=== PATIENT | female | born 1955 | race Caucasian/White ===

== ENCOUNTER 2023-05-22 14:49 | Outpatient (REF) | payer OTHER, SELFPAY | END 2023-05-22 14:50 | disposition home or self-care (01) | LOC: HO.CHCLNP 14:49 | PROVIDERS: Visit Provider Family Medicine | DX: Z11.52 Encounter for screening for COVID-19 (principal); Z20.822 Contact with and (suspected) exposure to COVID-19 | CPT/HCPCS: 0241U ==

== ENCOUNTER 2023-10-21 08:58 | Outpatient (REF) | payer OTHER, SELFPAY ==
[2023-10-21 14:32] LABS: MANUAL DIFF FLAG NO
[2023-10-21 14:44] LABS: Basophils Absolute Auto 0.1 X10*3/uL (0.0-0.2); Eosinophils Absolute Auto 0.4 X10*3/uL (0.0-0.4); Eosinophils Percent Auto 3.1 % (0-4); Hemoglobin 8.4 g/dl (12.0-16.0); Imm Gran Abs Auto 0.04 X10*3/uL (0.00-0.03); Imm Gran Pct Auto 0.3 % (0.0-0.4); Lymphocytes Absolute Auto 4.4 X10*3/uL (1.2-4.9); Lymphocytes Percent Auto 35.6 % (20-40); Mean Corpuscular Hemoglobin 23.5 pg (27.0-33.0); Mean Corpuscular Volume 78.4 fL (80.0-98.0); Mean Platelet Volume 9.1 fL (9.4-12.3); Monocytes Percent Auto 8.3 % (2-11); Neutrophils Absolute Auto 6.3 x10*3/uL (2.0-8.3); Neutrophils Percent Auto 51.7 % (45-73); Platelet Count 436 X10*3/uL (160-400); Red Blood Count 3.57 X10*6/uL (4.20-5.50); Red Cell Distribution Width 16.5 % (11.0-16.0); White Blood Count 12.2 X10*3/uL (4.8-10.8)
[2023-10-21 15:51] LABS: Alanine Aminotransferase 20 U/L (0-31); Albumin Level 3.9 g/dL (3.5-5.0); Alkaline Phosphatase 95 U/L (39-117); Anion Gap 13 (12-20); Aspartate Amino Transferase 24 U/L (5-31); Bilirubin Total 0.2 mg/dL (0.0-1.0); Blood Urea Nitrogen 16 mg/dL (9-16); Calcium 8.7 mg/dL (8.4-10.2); Carbon Dioxide 24 mmol/L (22-29); Chloride 105 mmol/L (96-108); Cholesterol 168 mg/dL (<200); Estimated Glomerular Filt Rate > 60; Glucose Fasting 66 mg/dL (60-99); HDL Cholesterol 36 mg/dL (>40); LDL Cholesterol Calculated 116 mg/dL (<100); Potassium 3.8 mmol/L (3.3-5.1); Sodium 138 mmol/L (135-145); Total Protein 8.2 g/dL (6.5-8.0); Triglycerides 82 mg/dL (<150)
[2023-10-21 15:55] LABS: TSH reflex Free T4 2.29 uIU/mL (0.32-4.0)
[2023-10-22 08:51] LABS: HIV AB/AG Nonreactive (Nonreactive); HIV Num 1 0.04 S/CO (0.00-0.99); ~HepC Num1 0.08 S/CO (0.00-0.79); ~Hepatitis C Antibody Nonreactive (Nonreactive)
[2023-10-26 18:43] LABS: VITAMIN D (1,25 OH) D3 42 pg/mL; Vit D (1,25-Dihydroxy) Total 42 pg/mL (18-72); Vitamin D (1,25 OH) D2 <8 pg/mL
== END 2023-10-21 08:59 | disposition home or self-care (01) ==
LOC: HO.CHCLDS 08:58
PROVIDERS: Visit Provider Family Medicine
DX: Z11.4 Encounter for screening for human immunodeficiency virus [HIV] (principal); E66.9 Obesity, unspecified; Z68.31 Body mass index [BMI] 31.0-31.9, adult
CPT/HCPCS: 36415; 80053; 80061; 82652; 84443; 85025; 86803; 87389

== ENCOUNTER 2023-10-23 14:01 | Outpatient (REF) | payer OTHER, SELFPAY ==
[2023-10-23 18:02] LABS: Immature Retic Fraction 30.6 % (3.0-15.9); Retic HGB Equivalent 23.6 pg (30.0-35.0); Reticulocyte Percent 1.7 % (0.5-1.8); Reticulocytes Absolute 0.057 X10*6/uL (0.026-0.095)
[2023-10-23 19:18] LABS: Iron 248 mcg/dL (30-160); Percent Iron Saturation 63 % (15-50); Total Iron Binding Capacity 395 mcg/dL (228-428); Unsaturated Iron Binding 147 ug/dL
[2023-10-23 19:33] LABS: Ferritin 19 ng/mL (10-250)
[2023-10-23 19:48] LABS: Folate 4.9 ng/mL (> or = 4.0); Vitamin B12 428 pg/mL (200-900)
== END 2023-10-23 14:02 | disposition home or self-care (01) ==
LOC: HO.CHCLDS 14:01
PROVIDERS: Visit Provider Internal Medicine
DX: D50.9 Iron deficiency anemia, unspecified (principal)
CPT/HCPCS: 36415; 82607; 82728; 82746; 83540; 85045

== ENCOUNTER 2023-11-26 12:57 | Outpatient (REF) | payer OTHER, SELFPAY ==
--- NOTE | ~2023-11-26 | US_ITS ---
EXAMINATION: US SOFT TISSUE HEAD/NECK CLINICAL INFORMATION: Enlarged lymph nodes. COMPARISON: None available. TECHNIQUE: Linear transducer cancino-scale and color Doppler examination of the left neck level Va/Vb. FINDINGS: In the area of clinical concern, two small hypoechoic masses are seen measuring 0.6 x 0.2 x 0.3 cm and 1.0 x 0.6 x 0.3 cm. Both demonstrate some vascularity. These have fatty sanket and are consistent with normal-appearing lymph nodes. US/US soft tiss head and/or neck IMPRESSION: Normal-appearing lymph nodes in the area of clinical concern.
== END 2023-11-26 12:58 | disposition home or self-care (01) ==
LOC: HO.US 12:57
PROVIDERS: PCP Family Medicine; Visit Provider Family Medicine
DX: R59.0 Localized enlarged lymph nodes (principal)
CPT/HCPCS: 76536

== ENCOUNTER 2023-12-14 08:29 | Outpatient (REF) | payer OTHER, SELFPAY ==
[2023-12-14 14:49] LABS: Monotest Negative (Negative)
[2023-12-14 14:51] LABS: Erythrocyte Sedimentation Rate 49 MM/HR (0-20)
[2023-12-14 14:53] LABS: C Reactive Protein 0.81 mg/dL (< or = 0.50); Lactate Dehydrogenase 245 U/L (122-220)
[2023-12-15 08:52] LABS: HIV AB/AG Nonreactive (Nonreactive); HIV Num 1 0.05 S/CO (0.00-0.99)
[2023-12-16 09:03] LABS: Hematocrit 32.3 % (35.0-45.0); Hemoglobin 10.2 g/dL (11.7-15.5); MCH 27.6 pg (27.0-33.0); MCV 87.3 fL (80.0-100.0); RDW 20.2 % (11.0-15.0)
[2023-12-16 10:38] LABS: EBV-VCA IgG Ab >750.00 U/mL; EBV-VCA IgM Ab <36.00 U/mL
[2023-12-17 05:09] LABS: Cytomegalovirus Ab IgG <0.60 U/mL; Cytomegalovirus Ab IgM <30.00 AU/mL
[2023-12-17 08:58] LABS: TS Negative Control Passed; TS Panel A 0; TS Panel B 0; TS Positive Control Passed; TSpotTB Negative (Negative)
[2023-12-17 11:38] LABS: Prot Elec - Albumin 3.9 g/dL (3.8-4.8); Prot Elec - Alpha1 0.3 g/dL (0.2-0.3); Prot Elec - Alpha2 0.9 g/dL (0.5-0.9); Prot Elec - Beta 1 0.5 g/dL (0.4-0.6); Prot Elec - Beta 2 0.5 g/dL (0.2-0.5); Prot Elec - Gamma 1.4 g/dL (0.8-1.7); Prot Elec - Total Protein 7.6 g/dL (6.1-8.1)
[2023-12-17 12:58] LABS: PEU-Protein Creat Ratio Rand 0.082 (0.024-0.184); PEU-Rand. Prot/Creat Ratio 82 mg/g creat (24-184); PEU-Random Ur. Gamma Globulin 0 %; PEU-Random Urine A1 Globulin 0 %; PEU-Random Urine A2 Globulin 0 %; PEU-Random Urine Albumin 100 %; PEU-Random Urine Beta Globulin 0 %; PEU-Random Urine Creatinine 159 mg/dL (20-275); PEU-Random Urine Protein 13 mg/dL (5-24)
== END 2023-12-14 08:30 | disposition home or self-care (01) ==
LOC: HO.CHCLDS 08:29
PROVIDERS: Visit Provider Family Medicine
DX: R59.0 Localized enlarged lymph nodes (principal)
CPT/HCPCS: 36415; 82570; 83020; 83615; 84156; 84165; 84166; 85014; 85018; 85041; 85652; 86140; 86308; 86335; 86481; 86644; 86645; 86664; 86665; 87389

== ENCOUNTER 2023-12-22 14:51 | Outpatient (AMB) | payer OTHER, MEDICAID, SELFPAY ==
--- NOTE | 2023-12-22 14:56 | MHC.OFFVIS ---
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 States her pinky finger is yi inward for the last 2-3 years and is very discomforting. 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 She is seen today with her daughter, and she is mildly hearing impaired. She complains of a contracture of her left ring & small fingers. Her primary complaint is of her small finger. Her daughter says this has been present and worsening for ~2 years now. She also has some lumps in her right palm, but denies any contractures. She has a hx of a collapsed lung when she was in her 20's. She has a hx of anxiety and she is anemic. She says she does not know the cause of her anemia. 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 Review of Systems Const All systems reviewed & are unremarkable except as noted in HPI and below Physical Exam Vital Signs: BMI result Body Mass Index 29.1 Const General: cooperative, healthy appearing and no acute distress Orientation/consciousness: patient oriented x3 HEENT Head: Yes normocephalic and Yes atraumatic Eyes EOM: EOMs intact bilaterally Resp Effort & Inspection: normal respiratory effort and able to speak in complete sentences Cardio Jugular venous distension: no JVD Skin General skin exam: turgor normal Rashes: no rashes Neuro General: patient oriented x3 Extrem Other: Evaluation of Bilateral Upper Extremity: The patient is alert, oriented, and in no acute distress Neuro: Median, Ulnar, Radial nerves motor and sensory intact and sensation is normal to the tips of all digits Vascular: Cap refill brisk ROM: She can make a fist and extend her thumb, index, and middle fingers Skin: No lacerations or abrasions. General: No Ecchymosis. No Erythema or evidence of infection. There is a large central cord extending from the palm to the radial aspect of the middle phalanx of the small finger Left small finger contracture: MCP 65/ PIP 50 Slender spiral Cord extending from the small finger central cord to the ulnar aspect of the ring finger, extending distally to the middle phalanx of the ring finger Ring finger contracture: MCP 25/PIP 0 Radiographs: Psych Appearance: grossly normal Affect: normal affect Attitude: cooperative Assessment & Plan Assessment & Plan (1) Dupuytren's contracture of left hand: Comment: FRANDY COULTER. Code(s): M72.0 - Palmar fascial fibromatosis [Dupuytren] Category: Medical Plan Assessment & Plan: 1. Left small finger Dupuytrens contracture MCP 65/PIP 50 2. Left ring finger Dupuytrens contracture MCP 25/PIP 0 I educated her about this condition I discussed operative and non-operative treatment options The patient would like to proceed with surgery The risks and benefits of operative treatment were discussed with the patient and the patient wishes to proceed with surgery. These risks include, but are not limited to risk of damage to blood vessels, nerves, tendons, infection, recurrence, incomplete relief of preoperative symptoms, persistent pain, possible need for further surgery and the risks associated with regional blocks and anesthesia. The plan is to take the patient to the operating room sometime in the next few weeks for the following procedures: 1. Left small finger partial fasciectomy, under general 2. Left ring finger partial fasciectomy, under general All of the preoperative paperwork including the consent was reviewed today. All the patient's questions were answered. The patient understands that they will be contacted by our personnel scheduler soon to schedule this procedure She denies Diabetes, blood thinners, asthma, heart, lung, kidney issues. She has a form of Anemia and will need clearance prior to surgery. Scribed for Imelda García MD by Luan Heath, medical fee clerk, on 12/22/23 at 3:05 PM, EST. Coding Level of Care Code New Pt Level 4 (87164) Diagnoses Dupuytren's contracture of left hand M72.0
[2023-12-22 14:58] VITALS: BMI 29.1
== END 2023-12-22 15:26 | disposition home or self-care (01) ==
PROVIDERS: PCP Internal Medicine; Visit Provider Orthopaedic Surgery
DX: M72.0 Palmar fascial fibromatosis [Dupuytren] (principal)
CPT/HCPCS: 99204

== ENCOUNTER → 2023-12-22 14:51 | Outpatient (BNVA) | payer OTHER, SELFPAY | PROVIDERS: Visit Provider Orthopaedic Surgery ==

== ENCOUNTER 2023-12-24 11:02 | Outpatient (REF) | payer OTHER, MEDICAID, SELFPAY ==
[2023-12-24 14:50] LABS: MANUAL DIFF FLAG NO
[2023-12-24 14:55] LABS: Basophils Absolute Auto 0.2 X10*3/uL (0.0-0.2); Basophils Percent Auto 1.3 % (0-2); Eosinophils Absolute Auto 0.4 X10*3/uL (0.0-0.4); Eosinophils Percent Auto 3.3 % (0-4); Hematocrit 33.8 % (37.0-47.0); Hemoglobin 10.8 g/dl (12.0-16.0); Imm Gran Abs Auto 0.03 X10*3/uL (0.00-0.03); Imm Gran Pct Auto 0.3 % (0.0-0.4); Lymphocytes Absolute Auto 4.4 X10*3/uL (1.2-4.9); Lymphocytes Percent Auto 38.5 % (20-40); Mean Corpuscular Hemoglobin 28.4 pg (27.0-33.0); Mean Corpuscular Volume 88.9 fL (80.0-98.0); Mean Platelet Volume 9.5 fL (9.4-12.3); Monocytes Absolute Auto 0.9 X10*3/uL (0.1-1.2); Monocytes Percent Auto 7.9 % (2-11); Neutrophils Absolute Auto 5.5 x10*3/uL (2.0-8.3); Neutrophils Percent Auto 48.7 % (45-73); Platelet Count 330 X10*3/uL (160-400); Red Cell Distribution Width 19.7 % (11.0-16.0); White Blood Count 11.4 X10*3/uL (4.8-10.8)
[2023-12-24 15:31] LABS: Iron 22 mcg/dL (30-160); Percent Iron Saturation 7 % (15-50); Total Iron Binding Capacity 306 mcg/dL (228-428); Unsaturated Iron Binding 284 ug/dL
[2023-12-24 15:37] LABS: Ferritin 38 ng/mL (10-250)
== END 2023-12-24 11:03 | disposition home or self-care (01) ==
LOC: HO.CHCLDS 11:02
PROVIDERS: Visit Provider Family Medicine
DX: D64.9 Anemia, unspecified (principal)
CPT/HCPCS: 36415; 82728; 83540; 85025

== ENCOUNTER 2023-12-31 10:27 | Outpatient (REF) | payer OTHER, SELFPAY | END 2023-12-31 10:28 | disposition home or self-care (01) | LOC: HO.SH 10:27 | PROVIDERS: PCP Family Medicine; Visit Provider Family Medicine | DX: Z01.118 Encounter for examination of ears and hearing with other abnormal findings (principal); H90.3 Sensorineural hearing loss, bilateral | CPT/HCPCS: 92557 ==

== ENCOUNTER 2024-02-03 14:31 | Outpatient (AMB) | payer OTHER, MEDICAID, SELFPAY ==
[2024-02-03 15:10] VITALS: BMI 29.1
--- NOTE | 2024-02-03 15:10 | MHC.OFFVIS ---
Vital Signs 02/03/24 15:10 Height 5 ft 5 in Weight 175 lb BMI 29.1 Handedness Right Intake Visit Reasons: Pre-Lt RF&SF Dupuytrens 02/15/24 Intake Note: Gena 68 yr old right hand dominant female presents today for her Pre-op visit for her left RF&SF Dupuytrens 02/15/[address] García. Accompanied by: Daughter Allergies No Known Allergies Allergy (Verified 02/03/24 15:11) HPI HPI Pre-Lt RF&SF Dupuytrens 02/15/24: Details: Gena is a 68 year old right hand dominant woman who returns to the office for her preoperative visit for her left ring & small finger Dupuytrens partial fasciectomy. She is seen today with her daughter, and she is mildly hearing impaired. The patient reports no changes in her symptoms. She complains of a contracture of her left ring & small fingers. Her primary complaint is of her small finger. Her daughter says this has been present and worsening for ~2 years now. She also has some lumps in her right palm, but denies any contractures. She denies any changes in her symptoms or medical history She has a hx of a collapsed lung when she was in her 20's. She has a hx of anxiety and she is anemic. She says she does not know the cause of her anemia. 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 Review of Systems Const All systems reviewed & are unremarkable except as noted in HPI and below Physical Exam Vital Signs: BMI result Body Mass Index 29.1 Const General: no acute distress and alert Orientation/consciousness: patient oriented x3 Neuro General: patient oriented x3 Extrem Other: Evaluation of Left Upper Extremity: The patient is alert, oriented, and in no acute distress Neuro: Median, Ulnar, Radial nerves motor and sensory intact and sensation is normal to the tips of all digits Vascular: Cap refill brisk ROM: She can make a fist and extend her thumb, index, and middle fingers General: No Ecchymosis. No Erythema or evidence of infection. There is a large central cord extending from the palm to the radial aspect of the middle phalanx of the small finger Left small finger contracture: MCP 65/ PIP 50 Slender spiral Cord extending from the small finger central cord to the ulnar aspect of the ring finger, extending distally to the middle phalanx of the ring finger Ring finger contracture: MCP 25/PIP 0 Psych Appearance: grossly normal Affect: normal affect Attitude: cooperative Assessment & Plan Assessment & Plan (1) Dupuytren's contracture of left hand: Comment: FRANDY COULTER. Code(s): M72.0 - Palmar fascial fibromatosis [Dupuytren] Category: Medical Plan Assessment & Plan: 1. Left small finger Dupuytrens contracture MCP 65/PIP 50 2. Left ring finger Dupuytrens contracture MCP 25/PIP 0 I educated her about this condition I discussed operative and non-operative treatment options The patient would like to proceed with surgery The risks and benefits of operative treatment were discussed with the patient and the patient wishes to proceed with surgery. These risks include, but are not limited to risk of damage to blood vessels, nerves, tendons, infection, recurrence, incomplete relief of preoperative symptoms, persistent pain, possible need for further surgery and the risks associated with regional blocks and anesthesia. The plan is to take the patient to the operating room sometime on 02/15/24 for the following procedures: 1. Left small finger partial fasciectomy, under general 2. Left ring finger partial fasciectomy, under general All of the preoperative paperwork including the consent was reviewed today. All the patient's questions were answered. She denies Diabetes, blood thinners, asthma, heart, lung, kidney issues. She has a form of Anemia and will need clearance prior to surgery. Scribed for Imelda García MD by arturo Montero scribe, on 02/03/24 at 3:20 PM, EST. Scribe Plan - Not visible on output: Scribed for Imelda García MD by arturo Montero scribe, on [ ] at [ ], EST. Coding Level of Care Code Est Pt Level 4 (10586) Diagnoses Dupuytren's contracture of left hand M72.0
== END 2024-02-03 15:46 | disposition home or self-care (01) ==
PROVIDERS: PCP Family Medicine; Visit Provider Orthopaedic Surgery
DX: M72.0 Palmar fascial fibromatosis [Dupuytren] (principal)
CPT/HCPCS: 99024

== ENCOUNTER → 2024-02-03 14:31 | Outpatient (BNVA) | payer OTHER, MEDICAID, SELFPAY | PROVIDERS: PCP Family Medicine; Visit Provider Orthopaedic Surgery ==

== ENCOUNTER 2024-02-15 10:01 | Day surgery (SDC) | payer OTHER, MEDICAID, SELFPAY ==
[2024-02-11 10:29] VITALS: BMI 29.1
[2024-02-15] VITALS (7 sets, daily range): BP systolic 122–159; BP diastolic 50–97; PULSE 73–89; RESP 12–16; TEMP 36.2–36.4; O2SAT 93–97
[2024-02-15] MEDS: Lactated Ringers 1,000 ML 100 ML IVCONT (10:37)
--- NOTE | 2024-02-15 10:59 | P.OP_ITS ---
Operative Note Operative Note Date of Service: 02/15/24 Narrative: Preop diagnosis: 1. Left small finger Dupuytren's contracture 2. Left ring finger Dupuytren's contracture Postop diagnosis: Same Procedure: 1. Left small finger Partial Dupuytren's fasciectomy 2. Left ring finger partial Dupuytren's fasciectomy 3. Left small finger ulnar Digital nerve neurolysis 4. Left small finger PIP joint arthrotomy and release of the volar plate to facilitate improvement of joint contracture Surgeon: Imelda García MD Anesthesia: General anesthesia plus regional block Findings: Dupuytren's cords extending from the palm to the D IP joint of the small finger, and also a 2nd cord extending from this small finger cord extending across the 4th webspace to the middle phalanx of the ring finger. Following partial fasciectomy we still had about a 45 degree flexion contracture at the PIP joint of the small finger. Following release of the PIP joint including the volar plate we improved our flexion contracture to about 5-10 degrees. Small finger improved to MCP 0 degrees/PIP 5-10 degrees. Ring finger improved to MCP 0 degree/ PIP 0 degree Implants: None Tourniquet time: 87 minutes EBL: 5.0 ml Specimen: Dupuytren's cords sent for histopathology Drains: None Complications: None Disposition: Brought to the recovery room in stable condition Plan: Follow-up in 10-14 days for wound check, suture removal and to check pathology OT appt on day of f/u to make a custom night spint and to begin OT Indications: The patient is 68 years old with left small finger and left ring finger Dupuytren's contractures . The risks and benefits of operative treatment, including but not limited to risk of damage to blood vessels, nerves, tendons, infection, recurrence, persistent pain or numbness, incomplete resolution of preoperative symptoms, or need for further surgery were discussed with the patient and they wished to proceed with surgery. Procedure: Once consent was obtained patient was brought back to the operating suite and placed in the operating table in a supine position. A regional block was performed by the anesthesia team. Perioperative antibiotics and anesthesia was administered by the anesthesia team. A tourniquet was applied to the proximal aspect of the left upper extremity and the limb was prepped and draped in a standard surgical fashion. The limb was elevated exsanguinated with Esmarch bandage and the tourniquet inflated to 250 mm of mercury for a total tourniquet time of 87 minutes. I made a Nancy type incision extending along the Dupuytren's cord from the mid palm to the DIP flexion crease of the left small finger. The incision was made with a 15. Blade through the skin the subcutaneous tissues. I then carefully dissected down to the level of the Dupuytren's cord beginning at the proximal aspect of the incision. This was done using tenotomy and iris scissors. Care was taken to protect the nearby neurovascular structures. The Dupuytren's cord was cut at its proximal aspect using tenotomy scissors. It was then grasped with an Allis clamp. The Dupuytren's cord was then carefully dissected free in a proximal to distal direction using tenotomy scissors and again taking care to protect the nearby neurovascular structures. I then changed course and side to work on the cord extending to the ulnar aspect of the ring finger as it was in extension from the central cord to the small finger. A partial Nancy incision was made over the proximal and middle phalanxes of the left ring finger again using a 15. Blade through the skin to the subcutaneous tissues. I then dissected through the skin to the subcutaneous tissues on the ulnar aspect of the ring finger. More proximal to this I then followed the spiral cord that extended from the small finger central cord radially to the ulnar side of the ring finger. This cord was carefully released from the surrounding tissues using direct visualization and with great care to protect the underlying neurovascular structures. It extended along the ulnar aspect of the ring finger and was dissected free from the skin and more distally the flexor tendon sheath. This cord was then dissected free from the patient and placed on the back table to be sent for histopathology. At this point we improved our ring finger Dupuytren's contracture to MCP 0/PIP 0. My attention was then turned back to the small finger. The Dupuytren's cord e xtended distally and then obliquely from the more radial aspect of the proximal phalanx to the ulnar aspect of the D IP joint. As we approached the more distal aspect of the cord I need to perform a neurolysis of the ulnar digital nerve and vessel. These were then wrapped around the Dupuytren's cord as it proceeded to the ulnar aspect of the D IP joint. The neurolysis was performed using iris and tenotomy scissors. While then protecting the ulnar neurovascular bundle, the Dupuytren's cord was then dissected free from the patient's finger and placed on the back table to be sent for histopathologic review. At this point we had improved our Dupuytren's contracture to MCP 0/PIP 45 degrees. I then elected to release the volar aspect of the PIP joint a further improve our contracture release. This was done by opening the flexor tendon sheath at the A3 ciro, retracting the FDS and FDP tendons radially to expose the ulnar aspect of the PIP joint. I then released the proximal aspect of the volar plate using a 15. Blade under direct visualization. This then allowed me to improve the PIP joint contracture from 45 degrees to about 5-10 degrees. Thus our final improvement was to MCP 0 degrees/PIP 5-10 degrees.. At this point the tourniquet was deflated and hemostasis obtained with a brief period of local pressure . The wound was copiously irrigated with normal saline. The skin edges were reapproximated with 5-0 Prolene suture. The wound was infiltrated with some 0.25% plain Marcaine for postop pain control and a sterile dressing and volar splint holding the small and ring fingers in extension was applied. The patient appears to have tolerated the procedure well and with no complications. All digits were well vascularized conclusion of the case.
--- NOTE | 2024-02-15 10:59 | MHC.SHP ---
Pre-Procedural Eval Section A - 24 Hr Update-Section A only Date of Service: 02/15/24 The patient is an INPATIENT: No Changes since office visit: No Cold of Flu in the past 2 weeks, No New Medical Problems, No Changes in Medication and No Patient answered all questions The patient has been examined within 24 hours of the surgical procedure. The History & Physical has been completed within 30 days and I have reviewed it.: Yes Section B - Complete if H&P > 30 days Chief Complaint: Palmar fascial fibromatosis [Dupuytren] Allergies: Allergies Allergy/AdvReac Type Severity Reaction Status Date / Time No Known Allergies Allergy Verified 02/15/24 10:15 Plan I have reviewed the history and physical and performed a pertinent physical examination on my patient. No changes have occurred unless specified. Time Spent With Patient Time: Total time managing care of this patient today ____ minutes.
--- NOTE | 2024-02-15 11:00 | HO.ANESPROP2 ---
Documented by User: Mylene Sagastume NP 02/12/24 13:03 HPI - Anesthesia Eval Consult details Narrative: 68yo F for Left Small finger and Ring finger Dupuytrens Contracture Release Fasciotomy PMFSH Active Problems Active Problems: All Active Problems Dupuytren's contracture of left hand (Acute) Past Medical History Medical History Anxiety Anemia Hard of hearing Hypothyroid GERD (gastroesophageal reflux disease) HTN (hypertension) Surgical History Surgical History Surgical history unknown Social History Social History (Updated 02/11/24 @ 10:35 by Gisella Pierce RN) Patient Tobacco Use Status: Former Tobacco user Tobacco use type: Cigarette Use of substances other than those prescribed or required for medical reasons: No Are you DNR?: No Advance Directives: No Advance Directives Information Provided: Yes Current occupational status: 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 Meds Allergies Allergy/AdvReac Type Severity Reaction Status Date / Time No Known Allergies Allergy Verified 02/15/24 10:15 Home Medications ?Medication ?Instructions ?Recorded ?Confirmed ?Last Taken ?Type escitalopram oxalate 20 mg tablet 20 mg PO DAILY 12/22/23 02/15/24 02/14/24 History ferrous gluconate 324 mg (38 mg 324 mg PO DAILY 12/22/23 02/15/24 02/14/24 History iron) tablet levothyroxine 75 mcg tablet 75 mcg PO DAILY 12/22/23 02/15/24 02/14/24 History metoprolol succinate 25 mg 25 mg PO DAILY 12/22/23 02/15/24 02/14/24 History tablet,extended release 24 hr omeprazole 20 mg capsule,delayed 20 mg PO DAILY 12/22/23 02/15/24 02/14/24 History release lorazepam 0.5 mg tablet 0.5 mg PO DAILY PRN Anxiety 02/03/24 02/15/24 02/14/24 History Exam Height,Weight and Vital Signs: Height 5 ft 5 in Weight 79.379 kg Pertinent Lab Results Pertinent Lab Results: Laboratory Tests 10/21/23 12/24/23 09:08 11:03 WBC 11.4 H Hgb 10.8 L D Hct 33.8 L D Plt Count 330 Sodium 138 Potassium 3.8 Chloride 105 Carbon Dioxide 24 BUN 16 Creatinine 0.78 Assessment and Plan Assessment Anesthesia Assessment: Chart Reviewed Documented by User: Ondina Vyas DO 02/15/24 11:29 [facility] Past Medical History Medical History Anxiety Anemia Hard of hearing Hypothyroid GERD (gastroesophageal reflux disease) HTN (hypertension) Family History Family history of problems with anesthesia: No Surgical History Surgical History Surgical history unknown History of Problems with Anesthesia: No Social History Social History (Updated 02/11/24 @ 10:35 by Gisella Pierce RN) Patient Tobacco Use Status: Former Tobacco user Tobacco use type: Cigarette Use of substances other than those prescribed or required for medical reasons: No Are you DNR?: No Advance Directives: No Advance Directives Information Provided: Yes Current occupational status: 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 Meds Allergies Allergy/AdvReac Type Severity Reaction Status Date / Time No Known Allergies Allergy Verified 02/15/24 10:15 Home Medications ?Medication ?Instructions ?Recorded ?Confirmed ?Last Taken ?Type escitalopram oxalate 20 mg tablet 20 mg PO DAILY 12/22/23 02/15/24 02/14/24 History ferrous gluconate 324 mg (38 mg 324 mg PO DAILY 12/22/23 02/15/24 02/14/24 History iron) tablet levothyroxine 75 mcg tablet 75 mcg PO DAILY 12/22/23 02/15/24 02/14/24 History metoprolol succinate 25 mg 25 mg PO DAILY 12/22/23 02/15/24 02/14/24 History tablet,extended release 24 hr omeprazole 20 mg capsule,delayed 20 mg PO DAILY 12/22/23 02/15/24 02/14/24 History release lorazepam 0.5 mg tablet 0.5 mg PO DAILY PRN Anxiety 02/03/24 02/15/24 02/14/24 History Exam Exam Date and Time: February 15, 2024 1100 Height,Weight and Vital Signs: Height 5 ft 5 in Weight 79.379 kg Height 5 ft 5 in Weight 81.647 kg Vital Signs Temperature 97.5 F 02/15/24 10:36 Pulse Rate 87 02/15/24 10:36 Respiratory Rate 16 02/15/24 10:36 Blood Pressure 159/97 H 02/15/24 10:36 Pulse Oximetry 94 02/15/24 10:36 Oxygen Delivery Method Room Air 02/15/24 10:36 Temperature 97.5 F 02/15/24 10:36 Pulse Rate 87 02/15/24 10:36 Respiratory Rate 16 02/15/24 10:36 Blood Pressure 159/97 H 02/15/24 10:36 Pulse Oximetry 94 02/15/24 10:36 Oxygen Delivery Method Room Air 02/15/24 10:36 Airway Mallampati Class: I TM Dist: >3cm Neck ROM: Full Denture: Upper Heart: S1S2 Lungs: CTAB Assessment and Plan Assessment Anesthesia Assessment: Anesthesia Plan Discussed and Chart Reviewed Final Anesthetic Review Family History of Problems with Anesthesia: No History of Problems with Anesthesia: No NPO: Yes ASA Class: II Final Preanesthetic Review: No Changes in Pt Med Stat, Meds/Allgs Chart Reviewed, Consent Obtained/Reviewed and Anes Risks/Benef Reviewed Patient Risk: Low Procedure Risk: Low Anesthetic Plan Anesthetic Plan: GA, Regional Block (left brachial plexus block) and Agree w/ Assess. and Plan Disposition: Standard PACU
== END 2024-02-15 16:16 | disposition home or self-care (01) ==
PROVIDERS: PCP Family Medicine; Visit Provider Orthopaedic Surgery
PROC: (CPT 26045; principal; 2024-02-15 11:10)
DX: M72.0 Palmar fascial fibromatosis [Dupuytren] (principal); D64.9 Anemia, unspecified
CPT/HCPCS: 26123; 26125; 88304; J0131; J0690; J1100; J2250; J2405; J2704; J2795; J3010

== ENCOUNTER → 2024-02-15 10:01 | Outpatient (BNV) | payer OTHER, MEDICAID, SELFPAY | PROVIDERS: PCP Family Medicine; Visit Provider Orthopaedic Surgery | DX: M72.0 Palmar fascial fibromatosis [Dupuytren] (principal) | CPT/HCPCS: 26123; 26125 ==

== ENCOUNTER → 2024-02-23 12:56 | Outpatient (BNV) | payer OTHER, MEDICAID, SELFPAY | PROVIDERS: PCP Internal Medicine; Referring Provider Internal Medicine; Visit Provider Internal Medicine | DX: D50.9 Iron deficiency anemia, unspecified (principal) | CPT/HCPCS: 99204; 99214; G2211 ==

== ENCOUNTER 2024-03-01 10:43 | Outpatient (AMB) | payer OTHER, MEDICAID, SELFPAY ==
--- NOTE | 2024-03-01 10:54 | A.OFFVIS_ITS ---
Vital Signs 03/01/24 11:18 Handedness Right Intake Visit Reasons: PO-Lt RF&SF Dupuytrens 02/15/24 Intake Note: Gena is a 68 year old right hand dominant female who presents to the office today post operatively s/p left Ring Finger & Small Finger Dupuytrens 02/15/24. She states she is doing well and is having no pains. She has no concerns today. Accompanied by: Daughter Allergies No Known Allergies Allergy (Verified 03/01/24 11:19) HPI HPI PO-Lt RF&SF Dupuytrens 02/15/24: Details: Patient is a 68-year-old female who presents for follow-up for left ring finger and small finger Dupuytren's contracture she will fasciectomy, DOS 02/15/[address] García. Patient reports that she is feeling well, has no acute concerns at this time. Patient feels that she is healing well, and has not noticed any increased swelling, erythema, or evidence of infection. Patient inquires as to the next steps in her treatment. 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 Neuro: Median, ulnar, radial nerves motor and sensory intact and sensation is normal to the tips of all digits. Vascular: Cap refill brisk Pain: Patient reports no tenderness to palpation at or about the surgery site at this time ROM: Range of motion limited, patient is unable to make closed fist at this time. Skin: Well-healing incision sites over the left volar ring and small fingers General: No ecchymosis, erythema, or evidence of infection. Psych: Appears grossly normal Affect normal Attitude cooperative Assessment & Plan Assessment & Plan (1) Dupuytren's contracture of left hand: Comment: RF, SF. Code(s): M72.0 - Palmar fascial fibromatosis [Dupuytren] Category: Medical Plan 1. Left hand Dupuytren's contracture, status post Dupuytren's partial fasciectomy DOS 02/15/2024 Patient is recovering well postoperatively Patient is educated about the typical postoperative course While sutures were being removed in the office today, patient grew lightheaded and nauseous, and laid down on the floor in order to recover with an ice pack and water. Patient recovered without further issue. no loss of consciousness Sutures were then removed fully without difficulty Patient will be evaluated by Occupational therapy later today for fit of a night splint, and will schedule further appointments with them Patient will follow-up in 4 weeks for [id number] check, sooner with any acute concerns Orders: Orders OT Evaluation and Treatment Today M72.0 - Palmar fascial fibromatosis [Dupuytren] Coding Level of Care Code Global (64220) Diagnoses Dupuytren's contracture of left hand M72.0
== END 2024-03-01 12:17 | disposition home or self-care (01) ==
PROVIDERS: PCP Family Medicine
DX: M72.0 Palmar fascial fibromatosis [Dupuytren] (principal)
CPT/HCPCS: 99024

== ENCOUNTER → 2024-03-01 10:43 | Outpatient (BNVA) | payer OTHER, MEDICAID, SELFPAY | PROVIDERS: PCP Family Medicine; Visit Provider Orthopaedic Surgery | DX: M72.0 Palmar fascial fibromatosis [Dupuytren] (principal) ==

== ENCOUNTER 2024-03-28 14:00 | Outpatient (RCR) | payer OTHER, MEDICAID, SELFPAY ==
--- NOTE | 2024-03-01 16:13 | MHC.OT.OD ---
[address] [phone] F: [phone] Occupational Therapy Daily Note Patient Name: Gena Jones Start Time: End Time: Visit Duration: Billable Time: Date of Evaluation: Treatments to Date: Cancellations to Date: No Shows to Date: Authorized Treatment: Insurance End Date: Subjective: Pain Score: Pain Location: Objective: Pt saw the MD today prior to OT and had her stitches removed. In the OT clininc she was seen for fabrication of a resting hand orhhoses today 03/01 for Pos op t Dupytren's surger. She and her daughter were educated on wear and care of orthoses. As well as were instructed on changing gauze daily. She will have a f/up on 03/07 to be evaluated and begin tx. Tests and Measures: Assessment: Short Term Goals: Client Account Assistant Goals: Plan of Care: D/C Today: Treatment Plan: Treatment Plan Comments: Electronically Signed By: Rolanda Workman OTR/L Reviewed/agree with student documentation: Therapist:
--- NOTE | 2024-03-08 12:48 | MHC.OT.EP ---
[address] [phone] Occupational Therapy Plan of Care Patient Name: Gena Jones Date of Evaluation: 03/07/24 Diagnosis: Pain Location: mild discomfort but 0/10 pain to volar side of hand Pain Score: 0 Pain Scale Used: Numeric (0 - 10) Aggravating Factors: none reported Alleviating Factors: Assessment: Pt is a 68 yr old R hand dominant female who reports a contracture of her L RF/SF (partial) for years. she had surgery to increase extension of her digits on February 14 and at her follow up appointment her stitches were removed and a night time orthoses was fabricated to reinforce extension of her digits at [place] [facility] [place] [facility]. Pt was also instructed at this time to change her gauze daily and to open and close her hand several times throughout the day. She has been referred to skilled OT therapy for increased ROM, strength, and functional use of her non dominant hand. Frequency and Duration: The patient will be seen 2 xs a week for 4 weeks Short Term Goals: Pt will adhere to HEP Pt will adhere to nighttime orthoses wear schedule Pt will improve AROM of her SF (GARZA at IE was 115) to [facility] Goals: Pt will report an increase in the use of her L hand to perform laundry tasks Pt will make a light composite fist pt will RPLOF Treatment Plan: Therapeutic Exercise Therapeutic Activity Home Exercise Program Splinting Neuro Re-ed Patient Education Desensitization/Sensory Re-ed Edema Control ADL Training Ultrasound NMES Iontophoresis Paraffin Fluidotherapy MHP Cold Packs Joint Mobilization Soft Tissue Mobilization Kinesiotaping Other (see comments) Electronically Signed By: Rolanda Workman OTR/L Please Sign and return to therapist. Thank you once again for your referral.
== END 2024-12-13 11:09 | disposition home or self-care (01) ==
LOC: HO.OT 14:00
PROVIDERS: PCP Family Medicine; Visit Provider Orthopaedic Surgery
DX: M72.0 Palmar fascial fibromatosis [Dupuytren] (principal)
CPT/HCPCS: 29130; 97035; 97110; 97112; 97140; 97165; 97535

== ENCOUNTER 2024-03-29 12:42 | Outpatient (AMB) | payer OTHER, MEDICAID, SELFPAY ==
--- NOTE | 2024-03-29 12:56 | MHC.OFFVIS ---
Vital Signs 03/29/24 12:57 Handedness Right Intake Visit Reasons: PO-ROM check s/p Lt RF&SF Dupuytrens 02/15/24 Intake Note: Gena is a 68 year old right hand dominant female who presents to the office today post operatively for ROM check s/p left ring finger & small finger Dupuytren's fasciectomy, DOS 02/15/24.Patient is unable to make a full closed fist. She is able to bend her fingers without pain but states she has arthritis so she does not believe she will ever be able to make a closed fist. Denies any pain, numbness, and tingling. Her main concern today is hard tissue on the volar aspect of her left hand under her 4th digit. Allergies No Known Allergies Allergy (Verified 03/29/24 12:59) HPI HPI PO-ROM check s/p Lt RF&SF Dupuytrens 02/15/24: Details: Patient is a 68-year-old female who presents for nqttw-hd-skowys check status post left ring finger and small finger Dupuytren's partial fasciectomy, DOS 02/15/2024. Today, the patient reports that she is feeling great, and then she is thrilled with the results of her surgery. She reports that she is not experiencing any pain, numbness, tingling at this time, and that her only concern is a bit of hard tissue surrounding the incision site on the palmar aspect of the left hand. The patient reports that she is able to extend the left ring finger fully, and only has a very small degree of contracture remaining in the small finger at the level of the PIP joint, but she states that this is due to the arthritis she has not her hand and is unchanged from after surgery. Patient has been seeing occupational therapy, and her last visit will be this coming Thursday. 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 Neuro: Median, ulnar, radial nerves motor and sensory intact and sensation is normal to the tips of all digits. Vascular: Cap refill brisk Pain: Patient reports no tenderness to palpation or with range of motion of the left hand ROM: Patient is able to extend the PIP joint of the left small finger to approximately 5-10 degrees, unchanged from DOS and previous examination Range of motion of all other joints of the left hand and wrist full and intact Patient is able to make a closed fist Good finger cross Skin: Well-healed incision sites on the palmar aspect of the left hand noted, particularly over the 4th and 5th MCP joints and the volar aspect of the proximal left small .finger General: No ecchymosis, erythema, or evidence of infection. Of note, there is an area of scar tissue forming underneath the skin at the palmar incision site, nontender to palpation Psych: Appears grossly normal Affect normal Attitude cooperative Assessment & Plan Assessment & Plan (1) Dupuytren's contracture of left hand: Comment: RF, SF. Code(s): M72.0 - Palmar fascial fibromatosis [Dupuytren] Category: Medical Plan 1. Left small finger Dupuytrens contracture MCP 65/PIP 50 Preop MCP 0/5-10 PIP Postop 2. Left ring finger Dupuytrens contracture MCP 25/PIP 0 MCP 0/0 PIP postop S/p Dupuytren's partial fasciectomy DOS 02/15/2024 Patient is recovering well postoperatively Patient is educated about the typical recovery course Patient is informed that she is recovering very well postoperatively, and will not require any more scheduled follow-up Patient is informed that the hard tissue on the palmar aspect of her hand is most likely scar tissue, and then it is nothing that she needs to worry about Patient is also educated that she should continue with occupational therapy exercises even after discharge, to prevent stiffness and loss of range of motion of the left hand Patient is amenable to this plan Patient will follow-up p.r.n. with any acute concerns Coding Level of Care Code Global (08500) Diagnoses Dupuytren's contracture of left hand M72.0
== END 2024-03-29 13:33 | disposition home or self-care (01) ==
PROVIDERS: PCP Family Medicine
DX: M72.0 Palmar fascial fibromatosis [Dupuytren] (principal)
CPT/HCPCS: 99024

== ENCOUNTER → 2024-03-29 12:42 | Outpatient (BNVA) | payer OTHER, MEDICAID, SELFPAY | PROVIDERS: PCP Family Medicine ==

== ENCOUNTER 2024-04-26 09:07 | Outpatient (REF) | payer OTHER, MEDICAID, SELFPAY ==
[2024-04-26 14:05] LABS: MANUAL DIFF FLAG NO
[2024-04-26 14:16] LABS: Basophils Absolute Auto 0.2 X10*3/uL (0.0-0.2); Basophils Percent Auto 1.7 % (0-2); Eosinophils Absolute Auto 0.4 X10*3/uL (0.0-0.4); Eosinophils Percent Auto 3.5 % (0-4); Hematocrit 37.9 % (37.0-47.0); Hemoglobin 12.7 g/dl (12.0-16.0); Imm Gran Abs Auto 0.03 X10*3/uL (0.00-0.03); Imm Gran Pct Auto 0.3 % (0.0-0.4); Lymphocytes Absolute Auto 3.7 X10*3/uL (1.2-4.9); Lymphocytes Percent Auto 36.6 % (20-40); Mean Corpuscular HGB Conc 33.5 g/dl (31.0-35.0); Mean Corpuscular Hemoglobin 30.5 pg (27.0-33.0); Mean Corpuscular Volume 90.9 fL (80.0-98.0); Mean Platelet Volume 9.3 fL (9.4-12.3); Monocytes Percent Auto 9.7 % (2-11); Neutrophils Absolute Auto 4.8 x10*3/uL (2.0-8.3); Neutrophils Percent Auto 48.2 % (45-73); Platelet Count 322 X10*3/uL (160-400); Red Blood Count 4.17 X10*6/uL (4.20-5.50); Red Cell Distribution Width 12.9 % (11.0-16.0)
[2024-04-26 14:32] LABS: Iron 69 mcg/dL (30-160); Percent Iron Saturation 27 % (15-50); Total Iron Binding Capacity 254 mcg/dL (228-428); Unsaturated Iron Binding 185 ug/dL
[2024-04-26 14:51] LABS: Ferritin 73 ng/mL (10-250)
== END 2024-04-26 09:08 | disposition home or self-care (01) ==
LOC: HO.CHCLDS 09:07
PROVIDERS: Visit Provider Family Medicine
DX: D64.9 Anemia, unspecified (principal)
CPT/HCPCS: 36415; 82728; 83540; 85025